=== PATIENT | female | born 1975 | race Caucasian/White ===

== ENCOUNTER 2017-07-10 15:13 | Emergency (ER) | payer OTHER ==
[~2017-07-10] VITALS: Ht 160 cm; Wt 106.3 kg
[~2017-07-10 15:13] MED LIST: ASCORBIC ACID500 M3 PO; BACTRIM,SEPT1 TABLET PO; DOCUSATE SODIU100 MG PO; ECHINACEA PO; FLEXERIL5 MG PO; MOTRIN800 MG PO; MULTIPLE VITAM1 EACH PO; MYLICON,MYLANTA80 MG PO; PERCOCET 5/31 TABLET PO; TUSSIN DM LIQU118 ML PO; TYLENOL WITH C1 EACH PO; ULTRAM50 MG PO; VALTREX50 MG/ML PO; ZINC50 M1 PO
[2017-07-10] MEDS ORDERED: MOTRIN800 MG PO (16:01)
[2017-07-10] MEDS ORDERED: MEDROL DOSEPAK4 MG PO (16:01)
[2017-07-10] MEDS ORDERED: FLEXERIL10 MG PO (16:01)
[2017-07-10] MEDS ORDERED: LIDODERM 5% P1 PATCH TD (16:01)
[2017-07-10 18:44] VITALS: BP 124/89
== END 2017-07-10 18:45 | disposition home or self-care (01) ==
LOC: EME 15:13
DX: S46.011A Strain of muscle(s) and tendon(s) of the rotator cuff of right shoulder, initial encounter (principal); X50.0XXA Overexertion from strenuous movement or load, initial encounter; Y93.B9 Activity, other involving muscle strengthening exercises; F32.9 Major depressive disorder, single episode, unspecified; Z87.442 Personal history of urinary calculi; Z98.84 Bariatric surgery status; Z88.0 Allergy status to penicillin; Z91.040 Latex allergy status
CPT/HCPCS: 73030; 99281; 99284; J1885; J7512